=== PATIENT | male | born 1950 | race Two or more races ===

== ENCOUNTER 2018-05-26 12:48 | Outpatient (CLI) | payer OTHER | END 2018-05-26 13:09 | disposition home or self-care (01) | LOC: RAD 12:48 | DX: I70.0 Atherosclerosis of aorta (principal) ==

== ENCOUNTER 2018-06-09 13:07 | Outpatient (CLI) | payer OTHER ==
[~2018-06-09] VITALS: Ht 162.6 cm; Wt 95.3 kg
== END 2018-06-09 13:25 | disposition home or self-care (01) ==
LOC: OFIC 805 13:07
DX: R09.82 Postnasal drip (principal); R09.81 Nasal congestion; J34.2 Deviated nasal septum

== ENCOUNTER 2018-06-26 14:08 | Outpatient (CLI) | payer OTHER ==
[~2018-06-26] VITALS: Ht 152.4 cm; Wt 95.3 kg
== END 2018-06-26 14:20 | disposition home or self-care (01) ==
LOC: OFIC 805 14:08
DX: D10.30 Benign neoplasm of unspecified part of mouth (principal)

== ENCOUNTER 2018-07-03 15:38 | Outpatient (CLI) | payer OTHER ==
[~2018-07-03] VITALS: Ht 152.4 cm; Wt 95.3 kg
== END 2018-07-03 15:48 | disposition home or self-care (01) ==
LOC: OFIC 805 15:38
DX: C02.1 Malignant neoplasm of border of tongue (principal)

== ENCOUNTER 2018-07-24 14:17 | Outpatient (CLI) | payer OTHER ==
[~2018-07-24] VITALS: Ht 152.4 cm; Wt 93.0 kg
== END 2018-07-24 14:40 | disposition home or self-care (01) ==
LOC: OFIC 805 14:17
DX: R09.82 Postnasal drip (principal); R09.81 Nasal congestion; D10.1 Benign neoplasm of tongue

== ENCOUNTER 2018-07-29 13:26 | Outpatient (CLI) | payer OTHER | END 2018-07-29 13:43 | disposition home or self-care (01) | LOC: SONOGRAMA 13:26 | DX: M25.511 Pain in right shoulder (principal); M25.512 Pain in left shoulder ==

== ENCOUNTER 2018-08-01 13:25 | Outpatient (CLI) | payer OTHER | END 2018-08-01 13:34 | disposition home or self-care (01) | LOC: MRI 13:25 | DX: M54.5 Low back pain (principal) | CPT/HCPCS: 72148 ==

== ENCOUNTER 2018-09-08 13:29 | Outpatient (CLI) | payer OTHER | END 2018-09-08 13:38 | disposition home or self-care (01) | LOC: RAD 13:29 | DX: M25.572 Pain in left ankle and joints of left foot (principal); M25.571 Pain in right ankle and joints of right foot; M25.562 Pain in left knee; M25.561 Pain in right knee ==

== ENCOUNTER 2018-10-23 14:24 | Outpatient (CLI) | payer OTHER ==
[~2018-10-23] VITALS: Ht 152.4 cm; Wt 93.0 kg
== END 2018-10-23 14:40 | disposition home or self-care (01) ==
LOC: OFIC 805 14:24
DX: D10.1 Benign neoplasm of tongue (principal); J34.2 Deviated nasal septum; H90.3 Sensorineural hearing loss, bilateral; H93.13 Tinnitus, bilateral

== ENCOUNTER → 2021-03-28 | Outpatient (CLI) | payer OTHER | END | disposition home or self-care (01) | LOC: PPH VACUNA 08:03 | PROVIDERS: ATTEND Emergency Medicine Pediatric Emergency Medicine | DX: Z23 Encounter for immunization (principal) ==

== ENCOUNTER 2022-12-12 12:14 | Outpatient (CLI) | payer OTHER | END 2022-12-12 12:25 | disposition home or self-care (01) | LOC: SONOGRAMA 12:14 | PROVIDERS: ATTEND Internal Medicine Pulmonary Disease | DX: R05.3 Chronic cough (principal) ==

== ENCOUNTER 2022-12-12 12:44 | Outpatient (CLI) | payer OTHER | END 2022-12-12 12:46 | disposition home or self-care (01) | LOC: LAB 12:44 | PROVIDERS: ATTEND Internal Medicine Pulmonary Disease | DX: J45.30 Mild persistent asthma, uncomplicated (principal) ==

== ENCOUNTER 2022-12-26 12:39 | Outpatient (CLI) | payer OTHER | END 2022-12-26 13:19 | disposition home or self-care (01) | LOC: LAB 12:39 | PROVIDERS: ATTEND Internal Medicine Pulmonary Disease | DX: R05.9 Cough, unspecified (principal); R06.02 Shortness of breath; R50.9 Fever, unspecified; Z20.822 Contact with and (suspected) exposure to COVID-19 ==

== ENCOUNTER 2023-03-11 12:57 | Outpatient (CLI) | payer OTHER | END 2023-03-11 13:00 | disposition home or self-care (01) | LOC: RAD 12:57 | PROVIDERS: ATTEND Orthopaedic Surgery Hand Surgery | DX: D68.9 Coagulation defect, unspecified (principal) ==

== ENCOUNTER 2023-03-14 14:05 | Outpatient (CLI) | payer OTHER | END 2023-03-14 14:11 | disposition home or self-care (01) | LOC: TOM 14:05 | PROVIDERS: ATTEND Otolaryngology | DX: J34.2 Deviated nasal septum (principal) ==

== ENCOUNTER 2023-08-22 15:00 | Outpatient (CLI) | payer OTHER | END 2023-08-22 15:06 | disposition home or self-care (01) | LOC: RAD 15:00 | PROVIDERS: ATTEND Internal Medicine Rheumatology | DX: M19.90 Unspecified osteoarthritis, unspecified site (principal) ==

== ENCOUNTER 2024-02-12 14:56 | Outpatient (CLI) | payer OTHER | END 2024-02-12 15:02 | disposition home or self-care (01) | LOC: RAD 14:56 | DX: M99.01 Segmental and somatic dysfunction of cervical region (principal); M99.02 Segmental and somatic dysfunction of thoracic region; M99.03 Segmental and somatic dysfunction of lumbar region ==

== ENCOUNTER 2024-10-15 14:56 | Outpatient (CLI) | payer OTHER | END 2024-10-15 15:35 | disposition home or self-care (01) | LOC: SONOGRAMA 14:56 | PROVIDERS: ATTEND Internal Medicine Rheumatology | DX: M65.849 Other synovitis and tenosynovitis, unspecified hand (principal); M19.90 Unspecified osteoarthritis, unspecified site ==